=== PATIENT | female | born 1950 | race Two or more races ===

== ENCOUNTER 2023-11-13 07:54 | Day surgery (SDC) | payer OTHER ==
[2023-11-09 10:47] LABS: PH,URINE 6.5 (5.0-8.0); URINE APPEARANCE Cloudy; URINE BILIRRUBIN Negative (NEGATIVE); URINE BLOOD Negative; URINE COLOR Yellow; URINE GLUCOSE Negative (NEGATIVE); URINE KETONE Negative (NEGATIVE); URINE LEUKOCYTE Large; URINE NITRATE Negative; URINE PROTEIN Trace (NEGATIVE); URINE UROBILINOGEN 0.2 E.U./dl
[2023-11-09 10:48] LABS: URINE BACTERIA 142.3 uL (0.0-1933); URINE EPITHELIAL CELLS 10.8 uL (0.0-38.8); URINE RBC 15.8 uL (0.0-20.8); URINE WBC 954.8 uL (0.0-23.2)
[2023-11-09 10:50] LABS: HEMATOCRIT 39.4 % (36.0-45.00); HEMOGLOBIN 13.3 g/dL (12.0-15.00); MEAN CELL VOLUME 96.3 fL (80.00-100.00); MEAN CORPUSCULAR HEMOGLOBIN 32.5 pg (27.00-32.0); MEAN CORPUSCULAR HGB CONC 33.8 g/dl (32.0-36.0); PLATELET COUNT 282 K/uL (150-450); RED BLOOD COUNT 4.09 M/uL (4.00-6.00)
[2023-11-09 11:23] LABS: PARTIAL THROMBOPLASTIN TIME 26.2 SECONDS (22.0-34.0); PROTHROMBIN TIME 10.9 SECONDS (9.0-11.5)
[2023-11-09 11:28] LABS: ALBUMIN 4.1 gm/dL (3.4-5.0); BILIRUBIN TOTAL 0.67 mg/dL (0.3-1.2); CREATININE SERUM 0.73 mg/dL (0.55-1.02); GFR 78.37; GLOBULINA 3.2 G/DL (2.4-3.5); POTASSIUM 4.68 mEq/L (3.5-5.1); TOTAL PROTEIN 7.3 gm/dL (6.4-8.2)
[~2023-11-13] VITALS: Ht 160 cm; Wt 79.4 kg
[~2023-11-13 07:54] MED LIST: CHILDREN'S ASPI81 MG PO; DIALYVITE 8001 EACH PO; SIMVASTATIN5 MG PO; SYNTHROID100 MCG PO
== END 2023-11-13 15:35 | disposition home or self-care (01) ==
LOC: O/R 07:54 → CIR.AMB 07:54 → SURG 07:54 → EDSTATUS 09:30 → SURG 11:00 → O/R 15:35 → CIR.AMB 15:35
PROVIDERS: ATTEND Specialist
DX: C50.512 Malignant neoplasm of lower-outer quadrant of left female breast (principal); Z53.09 Procedure and treatment not carried out because of other contraindication; R94.31 Abnormal electrocardiogram [ECG] [EKG]

== ENCOUNTER 2023-11-27 07:28 | Outpatient (CLI) | payer OTHER | END 2023-11-27 07:29 | disposition home or self-care (01) | LOC: NUCLEAR 07:28 | PROVIDERS: ATTEND Internal Medicine | DX: I20.9 Angina pectoris, unspecified (principal) | CPT/HCPCS: 78452; 93017; A9500 ==

== ENCOUNTER 2023-12-14 10:00 | Inpatient (IN) | payer OTHER ==
[~2023-12-14] VITALS: Ht 157.5 cm; Wt 79.4 kg
[2023-12-14] MEDS ORDERED: TOPROL XL25 M1 PO (12:23)
[2023-12-14 12:57] LABS: MEAN CELL VOLUME 94.7 fL (80.00-100.00); MEAN CORPUSCULAR HEMOGLOBIN 32.4 pg (27.00-32.0); MEAN CORPUSCULAR HGB CONC 34.2 g/dl (32.0-36.0); PLATELET COUNT 263 K/uL (150-450); RED BLOOD COUNT 4.02 M/uL (4.00-6.00)
[2023-12-14 13:15] LABS: PH,URINE 6.5 (5.0-8.0); URINE APPEARANCE Clear; URINE BILIRRUBIN Negative (NEGATIVE); URINE BLOOD Negative; URINE COLOR Yellow; URINE GLUCOSE Negative (NEGATIVE); URINE KETONE Negative (NEGATIVE); URINE LEUKOCYTE Moderate; URINE NITRATE Negative; URINE PROTEIN Negative (NEGATIVE); URINE UROBILINOGEN 0.2 E.U./dl
[2023-12-14 13:16] LABS: INR 1.02; PARTIAL THROMBOPLASTIN TIME 27.8 SECONDS (22.0-34.0); PROTHROMBIN TIME 11.1 SECONDS (9.0-11.5)
[2023-12-14 13:19] LABS: URINE BACTERIA 37.7 uL (0.0-1933); URINE EPITHELIAL CELLS 10.8 uL (0.0-38.8); URINE RBC 8.2 uL (0.0-20.8); URINE WBC 200.3 uL (0.0-23.2)
[2023-12-14 13:54] LABS: URINE CAST 0.15 uL (0.0-1.40)
[2023-12-14 14:10] LABS: ALBUMIN 3.9 gm/dL (3.4-5.0); BILIRUBIN TOTAL 0.58 mg/dL (0.3-1.2); CALCIUM 9.4 mg/dL (8.5-10.1); CREATININE SERUM 0.6 mg/dL (0.55-1.02); GFR 98.27; GLOBULINA 3.2 G/DL (2.4-3.5); POTASSIUM 4.04 mEq/L (3.5-5.1); TOTAL PROTEIN 7.1 gm/dL (6.4-8.2)
[2023-12-18] MEDS ORDERED: METOPROLOL SUCC25 MG (14:18)
[2023-12-18] MEDS ORDERED: SIMVASTATIN20 MG (14:18)
[2023-12-18] MEDS ORDERED: CIPROFLOXACIN IN 5 % DEXTROSE 400 MG/200 ML PIGGYBAG IV ONE (15:00)
[2023-12-18] MEDS ORDERED: MORPHINE SULFATE 4 MG/ML VIAL IV ONE ×2 (17:05→17:35)
[2023-12-18] MEDS ORDERED: OxyCODONE HCL/APAP UD (PERCOCET) PO PRN (17:15)
[2023-12-18] MEDS ORDERED: POTASSIUM CHLORIDE/D5-0.45NACL 20 MEQ/1,000 ML PIGGYBAG IV NR (17:15)
[2023-12-18] MEDS ORDERED: MEPERIDINE HCL/PF 50 MG/ML VIAL IM PRN (17:15)
[2023-12-18 18:10] VITALS: BP 168/77; O2SAT 96
[2023-12-18] MEDS ORDERED: FAMOTIDINE/PF 20 MG/2 ML VIAL IV SCH (21:00)
[2023-12-19 00:22] VITALS: BP 160/70; O2SAT 95
== END 2023-12-19 13:43 | disposition home or self-care (01) | DRG 583 ==
LOC: O/R 12-18 08:15 → SURH 12-18 08:45
PROVIDERS: ADMIT Specialist; ATTEND Specialist
PROC: 0HTU0ZZ Resection of Left Breast, Open Approach (ICD-10-PCS; principal; 2023-12-18 08:45)
DX: C50.512 Malignant neoplasm of lower-outer quadrant of left female breast (principal); Z20.822 Contact with and (suspected) exposure to COVID-19

== ENCOUNTER 2024-04-01 06:55 | Day surgery (SDC) | payer OTHER ==
[2024-03-17 10:44] LABS: HEMATOCRIT 35.5 % (36.0-45.00); MEAN CELL VOLUME 96.4 fL (80.00-100.00); MEAN CORPUSCULAR HEMOGLOBIN 32.6 pg (27.00-32.0); MEAN CORPUSCULAR HGB CONC 33.8 g/dl (32.0-36.0); PLATELET COUNT 175 K/uL (150-450); RED BLOOD COUNT 3.68 M/uL (4.00-6.00); RED CELL DISTRIBUTION WIDTH 12.9 % (11.5-14.5)
[2024-03-17 10:47] LABS: PH,URINE 6.5 (5.0-8.0); URINE APPEARANCE Clear; URINE BILIRRUBIN Negative (NEGATIVE); URINE BLOOD Negative; URINE COLOR Yellow; URINE GLUCOSE Negative (NEGATIVE); URINE KETONE Negative (NEGATIVE); URINE LEUKOCYTE Trace; URINE NITRATE Negative; URINE PROTEIN Negative (NEGATIVE); URINE UROBILINOGEN 0.2 E.U./dl
[2024-03-17 10:51] LABS: URINE BACTERIA 13.4 uL (0.0-1933); URINE EPITHELIAL CELLS 1.7 uL (0.0-38.8); URINE RBC 8.9 uL (0.0-20.8); URINE WBC 13.9 uL (0.0-23.2)
[2024-03-17 11:01] LABS: INR 0.97; PARTIAL THROMBOPLASTIN TIME 25.9 SECONDS (22.0-34.0); PROTHROMBIN TIME 10.6 SECONDS (9.0-11.5)
[2024-03-17 11:07] LABS: URINE CAST 0.14 uL (0.0-1.40)
[2024-03-17 12:10] LABS: ALBUMIN 3.8 gm/dL (3.4-5.0); BILIRUBIN TOTAL 0.44 mg/dL (0.3-1.2); CALCIUM 9.3 mg/dL (8.5-10.1); CREATININE SERUM 0.66 mg/dL (0.55-1.02); GFR 88.03; GLOBULINA 2.9 G/DL (2.4-3.5); POTASSIUM 4.17 mEq/L (3.5-5.1); TOTAL PROTEIN 6.7 gm/dL (6.4-8.2)
[2024-03-17 13:47] LABS: TSH 0.019 uIU/mL (0.358-3.74)
[~2024-04-01] VITALS: Ht 160 cm; Wt 79.4 kg
[~2024-04-01 06:55] MED LIST changes: +METOPROLOL SUCC25 MG; +SIMVASTATIN20 MG; +TOPROL XL25 M1 PO
[2024-04-01] MEDS ORDERED: CIPROFLOXACIN IN 5 % DEXTROSE 400 MG/200 ML PIGGYBAG IV ONE (11:39)
[2024-04-01] MEDS ORDERED: LIDOCAINE HCL 1% 20 ML VIAL IJ ONE (11:39)
[2024-04-01] MEDS ORDERED: HEPARIN SODIUM,PORCINE/PF 100 UNIT/ML SYRINGE IV ONE (11:39)
[2024-04-01] MEDS ORDERED: BUPIVACAINE HCL 30 ML VIAL IJ ONE (12:15)
[2024-04-01] MEDS ORDERED: FAMOTIDINE/PF 20 MG/10 ML SYRINGE IV SCH (13:45)
[2024-04-01] MEDS ORDERED: FAMOTIDINE/PF 20 MG/2 ML VIAL ONE (13:47)
== END 2024-04-01 15:15 | disposition home or self-care (01) ==
LOC: CIR.AMB 06:55
PROVIDERS: ATTEND Specialist
DX: C50.512 Malignant neoplasm of lower-outer quadrant of left female breast (principal); Z88.0 Allergy status to penicillin; E03.8 Other specified hypothyroidism; E78.5 Hyperlipidemia, unspecified; I49.9 Cardiac arrhythmia, unspecified
CPT/HCPCS: 36561; C1788